=== PATIENT | female | born 1990 | race Caucasian/White ===

== ENCOUNTER 2024-11-29 15:05 | Emergency (ER) | payer OTHER ==
[~2024-11-29] VITALS: Ht 170.2 cm; Wt 61.4 kg
[2024-11-29 16:20] VITALS: BP 105/83; PULSE 67; RESP 18; O2SAT 97
== END 2024-11-29 17:38 ==
LOC: EMS 15:05
DX: R07.1 Chest pain on breathing (principal); F41.9 Anxiety disorder, unspecified; V89.2XXA Person injured in unspecified motor-vehicle accident, traffic, initial encounter; Y93.89 Activity, other specified; Y92.410 Unspecified street and highway as the place of occurrence of the external cause; Y99.8 Other external cause status
CPT/HCPCS: 71045; 99283